=== PATIENT | female | born 1990 | race Two or more races ===

== ENCOUNTER 2020-09-03 20:41 | Emergency (ER) | payer OTHER, MEDICAID ==
[~2020-09-03] VITALS: Ht 165.1 cm; Wt 113.0 kg
[2020-09-03] MEDS ORDERED: MORPHINE SULFATE 4 MG/ML CPJ (NOT FOR IM USE) IV STA ×2 (21:01→23:54)
[2020-09-03] MEDS ORDERED: ONDANSETRON HCL 4MG/2ML INJ IV STA ×2 (21:01→23:54)
[2020-09-03] MEDS ORDERED: TETANUS, DIPHTHERIA, PERTUSSIS VAC/PF 0.5ML (>7YR OLD) IM ONE (21:15)
[2020-09-03] MEDS ORDERED: SODIUM CHLORIDE 0.9% 1,000 ML IV ONE (21:15)
[2020-09-03 21:39] LABS: BASOPHILS % 0.3 % (0.0-2.0); EOSINOPHILS % 0.1 % (0.0-5.0); HEMATOCRIT. 39.3 % (36.0-48.0); HEMOGLOBIN. 13.1 g/dL (12.0-16.0); LYMPHOCYTES % 17.7 % (20.0-50.0); MEAN CORPUSCULAR HEMOGLOBIN 30.4 pg (28.0-32.0); MEAN CORPUSCULAR VOLUME 91.6 fL (81.0-99.0); MEAN PLATELET VOLUME 7.6 fl (7.4-10.4); MONOCYTES % 6.3 % (2.0-8.0); NEUTROPHILS % 75.6 % (40.0-76.0); PLATELET 345 x1000/uL (130-400); RED CELL DISTRIBUTION WIDTH 13.8 % (11.6-14.6)
[2020-09-03 21:46] LABS: CHLORIDE 108 mEq/L (98-107)
[2020-09-03 21:49] LABS: HCG SCREEN NEGATIVE
[2020-09-03] MEDS ORDERED: PROPOFOL 200MG/20ML VIAL IV ONE (23:30)
[2020-09-03] MEDS ORDERED: KETAMINE HCL 50 MG/ML 10ML IV ONE (23:30)
[2020-09-04] MEDS ORDERED: T3 PO (01:55)
[2020-09-04] MEDS ORDERED: IBUP-2029 MT (01:56)
[2020-09-04] MEDS ORDERED: IBUPROFEN 600MG TABLET PO ONE (04:45)
[2020-09-04 04:54] VITALS: BP 147/85
== END 2020-09-04 06:07 | disposition home or self-care (01) ==
LOC: EDBD 20:41 → ER 20:41
DX: S52.592A Other fractures of lower end of left radius, initial encounter for closed fracture (principal); I10 Essential (primary) hypertension; Z79.899 Other long term (current) drug therapy; V49.49XA Driver injured in collision with other motor vehicles in traffic accident, initial encounter; Y93.89 Activity, other specified; Y92.89 Other specified places as the place of occurrence of the external cause; Y99.8 Other external cause status
CPT/HCPCS: 25605; 36415; 71045; 73090; 73110; 73562; 73590; 80053; 81025; 83880; 84484; 84703; 85025; 90471; 90715; 93005; 96361; 96374; 96375; 96376; 99152; 99285; J2270; J2405; J2704; J3490; J7030; A4565